=== PATIENT | female | born 1975 | race Caucasian/White ===

== ENCOUNTER 2017-10-19 22:38 | Emergency (ER) | payer BC ==
[~2017-10-19] VITALS: Ht 175.3 cm; Wt 102.1 kg
[~2017-10-19 22:38] MED LIST: CEPH500T PO; CITA40TA5 PO; CYCL10TA2 PO; DEXM10TA PO; GABA300C10 PO; HUM100VI6 SQ; HYDR-3105 PO; INSU100I13 SQ; INSU100V5 SQ; LEVO50TA6 PO; LISI10TA2 PO; MELO15TA24 PO; METH750T94 PO; PANT40TA5 PO; PHEN37.5 PO; SULF1TAB24 PO; TRAM50TA PO
[2017-10-20 00:09] VITALS: BP 136/72
[2017-10-20] MEDS ORDERED: ATIVAN PO STA (00:13)
--- NOTE | 2017-10-20 00:14 | NUR ---
US CALL IN TO [facility] FOR ULTRASOUND AT THIS TIME.
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
[2017-10-20] MEDS ORDERED: NORCO 5MG PO PRN (00:30)
[2017-10-20] MEDS ORDERED: NORCO 5MG PO ONE (00:34)
[2017-10-20] MEDS ORDERED: ATIVAN ONE (00:35)
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
[2017-10-20 01:23] VITALS: BP 136/72
== END 2017-10-20 01:15 | disposition home or self-care (01) ==
LOC: ER 22:38
DX: S86.911A Strain of unspecified muscle(s) and tendon(s) at lower leg level, right leg, initial encounter (principal); E07.9 Disorder of thyroid, unspecified; E11.9 Type 2 diabetes mellitus without complications; I10 Essential (primary) hypertension; Z79.4 Long term (current) use of insulin; Z90.49 Acquired absence of other specified parts of digestive tract; Z79.899 Other long term (current) drug therapy; Y93.01 Activity, walking, marching and hiking; Y93.89 Activity, other specified; Y92.098 Other place in other non-institutional residence as the place of occurrence of the external cause; Y99.8 Other external cause status
CPT/HCPCS: 99284; 93971

== ENCOUNTER 2019-11-06 21:00 | Emergency (ER) | payer BC, MEDICAID, OTHER ==
[~2019-11-06] VITALS: Ht 175.3 cm; Wt 111.1 kg
[~2019-11-06 21:00] MED LIST changes: -PANT40TA5 PO; +PANT40TA6 PO
[2019-11-06 21:16] VITALS: BP 150/85
[2019-11-06 21:23] VITALS: BP_SYST 150
[2019-11-06] MEDS ORDERED: PREDNISONE PO STA (21:24)
[2019-11-06] MEDS ORDERED: BENADRYL PO STA (21:24)
[2019-11-06] MEDS ORDERED: PEPCID PO STA (21:24)
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
[2019-11-06] MEDS ORDERED: PREDNISONE ONE (21:31)
[2019-11-06] MEDS ORDERED: PEPCID ONE (21:32)
[2019-11-06] MEDS ORDERED: BENADRYL PO ONE (21:32)
== END 2019-11-06 21:53 | disposition home or self-care (01) ==
LOC: ER 21:00
DX: T22.411A Corrosion of unspecified degree of right forearm, initial encounter (principal); T22.412A Corrosion of unspecified degree of left forearm, initial encounter; T21.41XA Corrosion of unspecified degree of chest wall, initial encounter; T20.46XA Corrosion of unspecified degree of forehead and cheek, initial encounter; E10.9 Type 1 diabetes mellitus without complications; Z90.89 Acquired absence of other organs; Z79.899 Other long term (current) drug therapy; X08.8XXA Exposure to other specified smoke, fire and flames, initial encounter; Y93.89 Activity, other specified; Y92.89 Other specified places as the place of occurrence of the external cause; Y99.8 Other external cause status
CPT/HCPCS: 99284; J7512; Q0163

== ENCOUNTER → 2019-11-18 | Outpatient (CLI) | payer OTHER ==
[~2019-11-18] MED LIST changes: +PANT40TA5 PO; -PANT40TA6 PO
--- NOTE | 2019-11-18 14:35 | DIREP ---
PROCEDURE:XRAY FOOT MIN 3 VWS-LT COMPARISON:[facility], CR, XRAY FOOT MIN 3 VWS-LT, 01/06/2017, 04:30 PM. INDICATIONS:L03.032 CELLULITIS OF LEFT TOE FINDINGS: BONES:No visible fracture. No bony destructive changes. JOINTS:Lisfranc alignment within normal limits. SOFT TISSUES:Soft tissue swelling with presumed bandage material about the great toe. OTHER:No additional findings. CONCLUSION: 1. Soft tissue swelling great toe consistent with cellulitis based on provided history. 2. No bony destructive changes to suggest advanced osteomyelitis. Early osteomyelitis can be radiographically occult, if concern for osteomyelitis persists consider MRI, preferably with contrast to further assess. Dictated by: Arben Coelho M.D. on 11/18/2019 at 02:31 PM
== END | disposition home or self-care (01) ==
LOC: RAD 14:07
PROVIDERS: ATTEND Nurse Practitioner Family
DX: L03.032 Cellulitis of left toe (principal); M25.475 Effusion, left foot
CPT/HCPCS: 73630-LT

== ENCOUNTER 2020-02-17 18:31 | Emergency (ER) | payer OTHER ==
[~2020-02-17] VITALS: Ht 175.3 cm; Wt 111.1 kg
[~2020-02-17 18:31] MED LIST changes: -PANT40TA5 PO; +PANT40TA6 PO
[2020-02-17 18:50] VITALS: BP 132/76
[2020-02-17 18:59] VITALS: BP 132/76
[2020-02-17] MEDS ORDERED: TYLENOL PO ONE (19:05)
[2020-02-17] MEDS ORDERED: TYLENOL PO STA (19:15)
--- NOTE | 2020-02-17 19:46 | DIREP ---
PROCEDURE:CHEST 2 VIEWS COMPARISON:[facility], CR, XRAY CHEST SINGLE VW, 11/18/2018, 01:42 AM. INDICATIONS:Cough FINDINGS: LUNGS/PLEURA:No significant pulmonary parenchymal abnormalities. No effusions. The lungs are well-expanded and clear. No ground-glass or interstitial infiltrates are seen to suggest viral pneumonia. No pneumonia, heart failure or effusions are seen. VASCULATURE:Normal. Unremarkable pulmonary vasculature. CARDIAC:Normal. No cardiac silhouette abnormality or cardiomegaly. MEDIASTINUM:Normal. No visible mass or adenopathy. BONES:Normal. No fracture or visible bony lesion. Minimal DJD in the thoracic spine. OTHER:Negative. CONCLUSION:No active disease. No pneumonia is seen. Dictated by: Davis Parikh MD on 02/17/2020 at 07:44 PM
--- NOTE | 2020-02-17 20:29 | ER.PDOC ---
General Chief Complaint: General Complaint Stated Complaint: FEVER/COUGH/CONGESTION Time seen by MD: 20:24 Source: patient Exam Limitations: no limitations History of Present Illness Initial Comments Fever, cough, congestion and bodyaches today. No chest pain or SOB. Timing/Duration: gradual Severity: moderate Associated Symptoms: fever/chills, sore throat, cough Allergies: Coded Allergies: No Known Allergies (Unverified , 08/16/14) Home Meds Active Scripts Sulfamethoxazole/Trimethoprim (BACTRIM DS TABLET) 1 Each Tablet, 1 TAB PO BID, #14 TAB 0 Refills Prov:JUNE GONSALES MD 03/05/17 Reported Medications Tramadol Hcl (TRAMADOL HCL) 50 Mg Tablet, 1 TAB PO Q4 for PAIN, #90 TAB 03/02/17 Phentermine Hcl (PHENTERMINE HCL) 37.5 Mg Tablet, 1 TAB PO DAILY, #30 TAB 2 Refills 03/02/17 Pantoprazole Sodium (PANTOPRAZOLE SODIUM) 40 Mg Tablet.dr, 1 TAB PO DAILY, #30 TAB 3 Refills 03/02/17 Methocarbamol (ROBAXIN-750) 750 Mg Tablet, 1 TAB PO Q6, #90 TAB 03/02/17 Meloxicam (MELOXICAM) 15 Mg Tablet, 1 TAB PO DAILY, #30 TAB 2 Refills 03/02/17 Lisinopril (LISINOPRIL) 10 Mg Tablet, 1 TAB PO DAILY, #30 TAB 5 Refills 03/02/17 Levothyroxine Sodium (LEVOTHYROXINE SODIUM) 50 Mcg Tablet, 1 TAB PO ACB, #30 TAB 5 Refills 03/02/17 Insulin Glargine,Hum.rec.anlog (LANTUS SOLOSTAR) 100 Unit/1 Ml Insuln.pen, 38 UNITS SQ BID, #15 MILLILITER 3 Refills 03/02/17 Hydrocodone Bit/Acetaminophen (NORCO 10-325) 1 Each Tablet, 1 EACH PO Q4H PRN for PAIN, #30 TAB 03/02/17 Gabapentin (GABAPENTIN) 300 Mg Capsule, 1 CAP PO BID, #90 CAP 5 Refills 03/02/17 Dexmethylphenidate Hcl (FOCALIN) 10 Mg Tablet, 1 TAB PO DAILY, #30 TAB 03/02/17 Cyclobenzaprine Hcl (FLEXERIL) 10 Mg Tablet, 1 TAB PO HS, #90 TAB 03/02/17 Citalopram Hydrobromide (CITALOPRAM HBR) 40 Mg Tablet, 1 TAB PO DAILY, #90 TAB 1 Refill 03/02/17 Insulin Regular, Human (HUMULIN R) 100 Unit/1 Ml Vial, 0 SQ ACHS, VIAL 01/21/16 Constitutional: no symptoms reported EENTM: see HPI Respiratory: see HPI Cardiovascular: no symptoms reported Gastrointestinal: diarrhea Genitourinary: no symptoms reported Musculoskeletal: no symptoms reported Skin: no symptoms reported All Other Systems: Reviewed and Negative Past Medical History Medical History: diabetes, high cholesterol, hypertension, thyroid disease Surgical History: back, cholecystectomy, tonsillectomy Social History Alcohol Use: none Drug Use: none Physical Exam General Appearance: alert, no distress Eye: eyes nml inspection Nose: nose nml Throat: pharynx nml, airway nml Neck: nml inspection, supple Respiratory: no resp.distress, breath sounds nml Abdomen: non-tender, no organomegaly CVS: reg rate & rhythm, heart sounds nml, tachycardia Skin: color nml, no rash, warm/dry Extremities: non-tender, nml ROM, no pedal edema NEURO/PSYCH: oriented x 3, CN's nml as tested, motor nml, sensation nml, mood/affect nml Results/Orders Results/Orders Orders - GODFREY COLLAZO MD Influenza A&B (02/17/20 19:01) Novel Coronavirus 2019([facility]) (02/17/20 19:01) Strep Screen (02/17/20 19:01) Acetaminophen (Tylenol) (02/17/20 19:05) Xr Chest 2v (02/17/20 19:09) Acetaminophen (Tylenol) (02/17/20 19:15) Vital Signs Date Time Temp Pulse Resp B/P (MAP) Pulse Ox O2 Delivery O2 Flow Rate FiO2 02/17/20 18:59 103.0 131 18 132/76 (94) 94 02/17/20 18:50 103.0 131 16 02/17/20 18:50 103.0 131 16 Administered Medications Medications (Trade) Dose Ordered Sig/Hakeem Route PRN Reason Start Time Stop Time Status Last Admin Dose Admin Acetaminophen (Tylenol) 1,000 mg STAT STAT PO 02/17/20 19:15 02/17/20 19:16 DC 10/20/20 19:15 1,000 MG Laboratory Tests Test 02/17/20 19:20 Influenza Type A Antigen NEGATIVE (NEG) Influenza B Immunofluorescence NEGATIVE (NEG) Group A Streptococcus Screen NEGATIVE (NEGATIVE) ER DEPART Departure Time of Disposition: 20:27 Disposition: 01 HOME, SELF-CARE Impression: Primary Impression: URI, acute Additional Impression: COVID-19 ruled out Condition: Stable Referrals: ENA PAZ (PCP) PRIMARY CARE PROVIDER Additional Instructions: Alternate Tylenol with Motrin Q4H as needed for fever of 100.4 and above Self quarantine at home until you are notified with your COVID results F/U with your PCP in 3-5 days Return to ED if worsening symptoms or concerns Duration or Time Spent with Pa: 20 min Problem Qualifiers GODFREY COLLAZO MD Feb 17, 2020 20:29
[2020-02-17 20:47] VITALS: BP 131/71
== END 2020-02-17 20:30 | disposition home or self-care (01) ==
LOC: ER 18:31
DX: J06.9 Acute upper respiratory infection, unspecified (principal); Z20.828 Contact with and (suspected) exposure to other viral communicable diseases; E07.9 Disorder of thyroid, unspecified; E11.9 Type 2 diabetes mellitus without complications; E78.00 Pure hypercholesterolemia, unspecified; I10 Essential (primary) hypertension; Z79.1 Long term (current) use of non-steroidal anti-inflammatories (NSAID); Z79.4 Long term (current) use of insulin; Z79.899 Other long term (current) drug therapy; Z90.49 Acquired absence of other specified parts of digestive tract
CPT/HCPCS: 71046; 87070; 87635; 87804; 87880; 99284

== ENCOUNTER 2020-08-03 17:30 | Emergency (ER) | payer OTHER ==
[~2020-08-03] VITALS: Ht 175.3 cm; Wt 106.6 kg
[~2020-08-03 17:30] MED LIST changes: -LISI10TA2 PO; +LISI10TA20 PO
[2020-08-03 17:40] VITALS: BP 140/63
[2020-08-03 17:43] VITALS: BP 140/63
[2020-08-03] MEDS ORDERED: TORADOL IM STA (17:43)
[2020-08-03] MEDS ORDERED: TORADOL ONE (17:44)
--- NOTE | 2020-08-03 17:49 | ER.PDOC ---
General Chief Complaint: Extremities Stated Complaint: LEFT FOOT INJURY Time seen by MD: 17:47 Source: patient Exam Limitations: no limitations History of Present Illness Initial Comments Left foot and ankle pain. Patient twisted it this evening. Pain is worse with movement. Onset: just prior to arrival Where: home Severity: moderate Context: twist Modifying Factors: pain on movement Allergies: Coded Allergies: No Known Allergies (Unverified , 08/16/14) Home Meds Active Scripts Sulfamethoxazole/Trimethoprim (BACTRIM DS TABLET) 1 Each Tablet, 1 TAB PO BID, #14 TAB 0 Refills Prov:JUNE GONSALES MD 03/05/17 Reported Medications Tramadol Hcl (TRAMADOL HCL) 50 Mg Tablet, 1 TAB PO Q4 for PAIN, #90 TAB 03/02/17 Phentermine Hcl (PHENTERMINE HCL) 37.5 Mg Tablet, 1 TAB PO DAILY, #30 TAB 2 Re fills 03/02/17 Pantoprazole Sodium (PANTOPRAZOLE SODIUM) 40 Mg Tablet.dr, 1 TAB PO DAILY, #30 TAB 3 Refills 03/02/17 Methocarbamol (ROBAXIN-750) 750 Mg Tablet, 1 TAB PO Q6, #90 TAB 03/02/17 Meloxicam (MELOXICAM) 15 Mg Tablet, 1 TAB PO DAILY, #30 TAB 2 Refills 03/02/17 Lisinopril (LISINOPRIL) 10 Mg Tablet, 1 TAB PO DAILY, #30 TAB 5 Refills 03/02/17 Levothyroxine Sodium (LEVOTHYROXINE SODIUM) 50 Mcg Tablet, 1 TAB PO ACB, #30 TAB 5 Refills 03/02/17 Insulin Glargine,Hum.rec.anlog (LANTUS SOLOSTAR) 100 Unit/1 Ml Insuln.pen, 38 UNITS SQ BID, #15 MILLILITER 3 Refills 03/02/17 Hydrocodone Bit/Acetaminophen (NORCO 10-325) 1 Each Tablet, 1 EACH PO Q4H PRN for PAIN, #30 TAB 03/02/17 Gabapentin (GABAPENTIN) 300 Mg Capsule, 1 CAP PO BID, #90 CAP 5 Refills 03/02/17 Dexmethylphenidate Hcl (FOCALIN) 10 Mg Tablet, 1 TAB PO DAILY, #30 TAB 03/02/17 Cyclobenzaprine Hcl (FLEXERIL) 10 Mg Tablet, 1 TAB PO HS, #90 TAB 03/02/17 Citalopram Hydrobromide (CITALOPRAM HBR) 40 Mg Tablet, 1 TAB PO DAILY, #90 TAB 1 Refill 03/02/17 Insulin Regular, Human (HUMULIN R) 100 Unit/1 Ml Vial, 0 SQ ACHS, VIAL 01/21/16 Past Medical History Medical History: diabetes, hypertension Surgical History: cholecystectomy Family History Significant Family History: no pertinent family hx Social History Alcohol Use: none Drug Use: none Review of Systems Constitutional: no symptoms reported EENTM: no symptoms reported Respiratory: no symptoms reported Cardiovascular: no symptoms reported Gastrointestinal: no symptoms reported Musculoskeletal: see HPI All Other Systems: Reviewed and Negative Physical Exam General Appearance: Alert, No Apparent Distress Foot: tenderness (lateral left foot), swelling, ecchymosis Ankle: tenderness (left foot) Gait: limited by pain Neuro: sensation nml, motor nml Vascular: no vascular compromise Tendons: tendon function nml Leg/Knee/Thigh: uninjured above ankle Skin: warm/dry Head/ENT: nml inspection, pharynx nml Neck/Back: nml inspection, non-tender Resp/CVS: no resp distress Abdomen: non-tender, no organomegaly Results/Orders Results/Orders Orders - GODFREY COLLAZO MD Xr Ankle 3v Lt (08/03/20 17:43) Xr Foot Lt (08/03/20 17:43) Ketorolac Tromethamine (Toradol) (08/03/20 17:43) Ketorolac Tromethamine (Toradol) (08/03/20 17:44) Vital Signs Date Time Temp Pulse Resp B/P (MAP) Pulse Ox O2 Delivery O2 Flow Rate FiO2 08/03/20 17:43 98.4 94 16 140/63 (88) 99 08/03/20 17:40 98.4 94 16 08/03/20 17:40 98.4 94 16 99 Administered Medications Medications (Trade) Dose Ordered Sig/Hakeem Route PRN Reason Start Time Stop Time Status Last Admin Dose Admin Ketorolac Tromethamine (Toradol) 60 mg STAT STAT IM 08/03/20 17:43 08/03/20 17:45 DC 08/03/20 17:51 60 MG Progress Progress X rays left foot: Nondisplaced fracture of the proximal 5th metatarsal. 2. Postsurgical changes as above. Reviewed results with patient. She is given crutches and a walking boot and will follow up with Dr. Bishop. ER DEPART Departure Time of Disposition: 19:18 Disposition: 01 HOME, SELF-CARE Impression: Primary Impression: Metatarsal fracture Condition: Stable Referrals: ENA PAZ (PCP) PRIMARY CARE PROVIDER Additional Instructions: Ice Continue Mobic Tylenol #3 F/U with Dr. Bishop in 1-2 days, call for appointment Return to ED if any concerns Duration or Time Spent with Pa: 10 min Problem Qualifiers Primary Impression: Metatarsal fracture Encounter type: initial encounter Metatarsal bone: fifth Fracture type: closed Fracture alignment: nondisplaced Laterality: left Qualified Codes: S92.355A - Nondisplaced fracture of fifth metatarsal bone, left foot, initial encounter for closed fracture GODFREY COLLAZO MD Aug 03, 2020 17:49
--- NOTE | 2020-08-03 18:20 | DIREP ---
PROCEDURE:XRAY FOOT MIN 3 VWS-LT COMPARISON:[facility], , XRAY FOOT MIN 3 VWS-LT, 11/18/2019, 02:15 PM. INDICATIONS:pain FINDINGS: BONES:Nondisplaced fracture of the proximal 5th metatarsal. Amputation of the great toe at the level of the distal aspect of the proximal phalanx is noted. Calcaneal plantar and Achilles enthesophytes. JOINTS:Normal. SOFT TISSUES:Mild lateral soft tissue swelling. OTHER:No additional findings. CONCLUSION:1. Nondisplaced fracture of the proximal 5th metatarsal. 2. Postsurgical changes as above. Dictated by: Selin Rios M.D. on 08/03/2020 at 06:18 PM
--- NOTE | 2020-08-03 18:20 | DIREP ---
PROCEDURE:XRAY ANKLE MIN 3VWS-LT COMPARISON:None. INDICATIONS:pain FINDINGS: BONES:Nondisplaced proximal 5th metatarsal fracture. Calcaneal Achilles and plantar enthesophytes. JOINTS:Normal. SOFT TISSUES:Normal. OTHER:No additional findings. CONCLUSION:Nondisplaced proximal 5th metatarsal fracture. Dictated by: Selin Rios M.D. on 08/03/2020 at 06:19 PM
--- NOTE | 2020-08-03 19:20 | NUR ---
CRUTCH TRAINING PATIENT ABLE TO FOLLOW INSTRUCTIONS, DEMONSTRATED SAFE, EFFECTIVE USE OF CRUTCHES.
== END 2020-08-03 19:28 | disposition home or self-care (01) ==
LOC: ER 17:30
DX: S92.355A Nondisplaced fracture of fifth metatarsal bone, left foot, initial encounter for closed fracture (principal); I10 Essential (primary) hypertension; E11.9 Type 2 diabetes mellitus without complications; Z79.1 Long term (current) use of non-steroidal anti-inflammatories (NSAID); Z79.4 Long term (current) use of insulin; Z79.899 Other long term (current) drug therapy; Z90.49 Acquired absence of other specified parts of digestive tract; X50.9XXA Other and unspecified overexertion or strenuous movements or postures, initial encounter; Y93.89 Activity, other specified; Y92.098 Other place in other non-institutional residence as the place of occurrence of the external cause; Y99.8 Other external cause status
CPT/HCPCS: 73610; 73630; 96372; 99284; J1885

== ENCOUNTER 2021-03-20 11:46 | Emergency (ER) | payer OTHER ==
[~2021-03-20] VITALS: Ht 175.3 cm; Wt 111.1 kg
[~2021-03-20 11:46] MED LIST changes: -CITA40TA5 PO; +CITA40TA6 PO; +CYCL10TA19 PO; -CYCL10TA2 PO; -PHEN37.5 PO; +PHEN37.59 PO
[2021-03-20 11:49] VITALS: BP 132/80
--- NOTE | 2021-03-20 12:16 | ER.PDOC ---
General Chief Complaint: Cough/Congestion Stated Complaint: COUGH/CONGESTION,ST,HEAD/BODYACHE TRAVEL OUT OF US: No Time seen by MD: 11:50 Source: patient Exam Limitations: no limitations History of Present Illness Initial Comments This 45-year-old white female comes in with complaint of possible Covid. Her son that is 10 years old tested positive for Covid yesterday. She started yesterday with some myalgias and then today woke up with a headache cough that i s nonproductive cough no change in sense of smell or taste. She does complain of some abdominal discomfort but she is not sure that she might not be passing a stone actually because her pain is on the right side and goes down into the from the flank down into the groin. She states that the abdominal pain that might be a stone just started today. She has a history of kidney stones in the past.She has subjective fever but has not taken a temp. Timing/Duration: 24 hours Severity: mild Modifying Factors: improves with other (nothing) Associated Symptoms: cough, fever/chills, headaches Allergies: Coded Allergies: No Known Allergies (Unverified , 08/16/14) Home Meds Active Scripts Sulfamethoxazole/Trimethoprim (BACTRIM DS TABLET) 1 Each Tablet, 1 TAB PO BID, #14 TAB 0 Refills Prov:JUNE GONSALES MD 03/05/17 Reported Medications Tramadol Hcl (TRAMADOL HCL) 50 Mg Tablet, 1 TAB PO Q4 for PAIN, #90 TAB 03/02/17 Phentermine Hcl (PHENTERMINE HCL) 37.5 Mg Tablet, 1 TAB PO DAILY, #30 TAB 2 Refills 03/02/17 Pantoprazole Sodium (PANTOPRAZOLE SODIUM) 40 Mg Tablet.dr, 1 TAB PO DAILY, #30 TAB 3 Refills 03/02/17 Methocarbamol (ROBAXIN-750) 750 Mg Tablet, 1 TAB PO Q6, #90 TAB 03/02/17 Meloxicam (MELOXICAM) 15 Mg Tablet, 1 TAB PO DAILY, #30 TAB 2 Refills 03/02/17 Lisinopril (LISINOPRIL) 10 Mg Tablet, 1 TAB PO DAILY, #30 TAB 5 Refills 03/02/17 Levothyroxine Sodium (LEVOTHYROXINE SODIUM) 50 Mcg Tablet, 1 TAB PO ACB, #30 TAB 5 Refills 03/02/17 Insulin Glargine,Hum.rec.anlog (LANTUS SOLOSTAR) 100 Unit/1 Ml Insuln.pen, 38 UNITS SQ BID, #15 MILLILITER 3 Refills 03/02/17 Hydrocodone Bit/Acetaminophen (NORCO 10-325) 1 Each Tablet, 1 EACH PO Q4H PRN for PAIN, #30 TAB 03/02/17 Gabapentin (GABAPENTIN) 300 Mg Capsule, 1 CAP PO BID, #90 CAP 5 Refills 03/02/17 Dexmethylphenidate Hcl (FOCALIN) 10 Mg Tablet, 1 TAB PO DAILY, #30 TAB 03/02/17 Cyclobenzaprine Hcl (FLEXERIL) 10 Mg Tablet, 1 TAB PO HS, #90 TAB 03/02/17 Citalopram Hydrobromide (CITALOPRAM HBR) 40 Mg Tablet, 1 TAB PO DAILY, #90 TAB 1 Refill 03/02/17 Insulin Regular, Human (HUMULIN R) 100 Unit/1 Ml Vial, 0 SQ ACHS, VIAL 01/21/16 Past Medical History Medical History: diabetes, hypertension, thyroid disease Surgical History: back, cholecystectomy, tubal Social History Smoking: non-smoker Alcohol Use: none Drug Use: none Review of Systems Constitutional: chills, fever, malaise Gastrointestinal: abdominal pain, nausea All Other Systems: Reviewed and Negative Physical Exam General Appearance: No Apparent Distress, Obese EENT: eyes nml inspection, nml ENT inspection, pharynx nml Neck: Non-Tender, Full Range of Motion, Supple Respiratory: chest non-tender, lungs clear, normal breath sounds, no respirato ry distress, no accessory muscle use CVS: reg rate & rhythm, no murmur, no gallop Gastrointestinal: Hypoactive bowel sounds, Tenderness (Patient has some vague epigastric pain. She states that is been there though since her lap band has been done. Really has not changed from baseline. She does have some vague pain in the right flank and radiated into the groin that she thinks is a stone. On palpation it does not make that pain any better or worse.) Back: Normal Inspection, No CVA Tenderness Extremities: Normal Range of Motion, Non-Tender, Normal Inspection Neurologic/Psychiatric: applications analyst II-XII NML as Tested, Alert, Normal Mood/Affect, Oriented x 3 (Patient does have diabetic neuropathy in both of her feet. Motor however is intact) Skin: Normal Color, Warm/Dry Lymphatic: No Adenopathy Results/Orders Results/Orders Orders - ABBIE SARMIENTO MD Cbc With Auto Diff (03/20/21 12:08) Comprehensive Metabolic Panel (03/20/21 12:08) Urinalysis (03/20/21 12:08) Xr Chest 1v (03/20/21 12:08) Covid19 Antigen Idania Barbie (03/20/21 12:16) Urine Culture (03/20/21 12:10) Vital Signs Date Time Temp Pulse Resp B/P (MAP) Pulse Ox O2 Delivery O2 Flow Rate FiO2 03/20/21 11:49 98.3 77 18 132/80 (97) 97 Room Air 03/20/21 11:49 98.3 77 18 97 03/20/21 11:49 98.3 77 18 Laboratory Tests Test 03/20/21 11:49 03/20/21 12:10 03/20/21 12:20 SARS-CoV-2 Antigen (Rapid) NEGATIVE (NEGATIVE) Urine Collection Type RANDOM Urine Color YELLOW Urine Appearance CLEAR Urine Bilirubin NEGATIVE (NEGATIVE) Urine Ketones NEGATIVE (NEGATIVE) Urine Specific [place] 1.010 (1.005-1.030) Urine pH 6.0 (4.5-8.0) Urine Protein NEGATIVE (NEGATIVE) Urine Urobilinogen 0.2 E.U./dL (0.2) Urine Nitrate NEGATIVE (NEGATIVE) Urine Leukocyte Esterase TRACE (NEGATIVE) H Urine Glucose (Auto)(UA) NEGATIVE (NEGATIVE) Urine Blood NEGATIVE (NEGATIVE) Urine WBC 2-5 WBC/HPF (0-2) Urine Squamous Epithelial Cells FEW (<=FEW) Urine Bacteria FEW (NONE SEEN) H White Blood Count 7.9 10^3/uL (4.5-11.0) Red Blood Count 5.01 10^6/uL (4.00-5.20) Hemoglobin 12.3 g/dL (12.0-15.0) Hematocrit 40.4 % (36.0-46.0) Mean Corpuscular Volume 80.6 fL (78-100) Mean Corpuscular Hemoglobin 24.6 pg (26-34) L Mean Corpuscular Hemoglobin Concent 30.4 g/dL (33-36.5) L Red Cell Distribution Width 13.7 % (11.5-14.5) Platelet Count 242 10^3/uL (150-400) Mean Platelet Volume 11.1 fL (7.8-11.0) H Neutrophils (%) (Auto) 63.3 % (41.0-85.0) Lymphocytes (%) (Auto) 29.8 % (24.0-44.0) Monocytes (%) (Auto) 5.7 % (5.0-12.0) Neutrophils # (Auto) 5.0 10^3/uL (1.8-7.7) Lymphocytes # (Auto) 2.34 10^3/uL1 (1.0-4.8) Monocytes # (Auto) 0.5 10^3/uL (0.3-0.8) Absolute Immature Granulocyte (auto 0.01 10^3 u/L (0-2) Absolute Eosinophils (auto) 0.1 10^3/uL (0.0-0.2) Immature Granulocytes % 0.10 % (0.00-0.50) Eosinophils % 0.8 % (0.0-5.0) Basophils % 0.3 % (0.0-0.2) H Basophils # 0.0 10^3/uL (0.0-0.1) Sodium Level 138 mmol/L (132-145) Potassium Level 3.8 mmol/L (3.6-5.2) Chloride Level 103.0 mmol/L (96-109) Carbon Dioxide Level 27.6 mmol/L (20.0-32) Anion Gap 11.2 Blood Urea Nitrogen 13 mg/dL (7-18) Creatinine 0.87 mg/dL (0.59-1.40) Estimated GFR () 85.6 (>/=60) Est GFR (CKD-EPI)(Non-Afr [place]an) 70.7 (>/=60) BUN/Creatinine Ratio 14.0 Glucose Level 215 mg/dL (70-110) H Calcium Level 8.7 mg/dL (8.4-10.5) Total Bilirubin 0.5 mg/dL (0.2-1.0) Aspartate Amino Transferase (AST) 53 U/L (0-35) H Alanine Aminotransferase (ALT) 65 U/L (12-78) Alkaline Phosphatase 70 U/L (50-136) Total Protein 7.1 g/dL (6.4-8.2) Albumin 3.3 g/dL (3.4-5.0) L Globulin 3.8 Albumin/Globulin Ratio 0.868 Progress Progress Diagnostic studies: Metabolic panelGlucose elevated at 215AST slightly elevated at 53 albumin low at 3.3 the rest of the metabolic panel is normal chest x-ray normal urinalysis normal CBC normal CBC normalCovid negative This patient has a 10-year-old son that turned up positive for Covid last night. I suspect she has Covid from her symptoms but it may just be too early to actually get it on the test. I recommend that she follow-up with her PCP tomorrow or Sunday at the latest and get retested. Patient is in the higher risk group because she is diabetic and her BMI is greater than 30. ER DEPART Departure Time of Disposition: 13:03 Disposition: 01 HOME / SELF CARE / HOMELESS Impression: Primary Impression: Viral syndrome Condition: Stable Referrals: AURA SANTAMARIA APRN (PCP) PRIMARY CARE PROVIDER Duration or Time Spent with Pa: 15m Return to Work/School Can a patient return to school: No (This patient needs to quarantine because her 10-year-old son has Covid.) ABBIE SARMIENTO MD Mar 20, 2021 12:16
[2021-03-20 12:21] LABS: BILIRUBIN,URINE NEGATIVE (NEGATIVE); UROBILINOGEN,URINE 0.2 E.U./dL (0.2)
[2021-03-20 12:26] LABS: BASOPHIL % 0.3 % (0.0-0.2); EOSINOPHIL # 0.1 10^3/uL (0.0-0.2); EOSINOPHIL % 0.8 % (0.0-5.0); LYMPHOCYTES # 2.34 10^3/uL1 (1.0-4.8); LYMPHOCYTES % 29.8 % (24.0-44.0); MEAN CORP HGB 24.6 pg (26-34); MONOCYTES # 0.5 10^3/uL (0.3-0.8); MONOCYTES % 5.7 % (5.0-12.0); NEUTROPHILS % 63.3 % (41.0-85.0); PLATELET COUNT 242 10^3/uL (150-400); RED CELL DISTRIBUTION WIDTH 13.7 % (11.5-14.5)
[2021-03-20 12:44] LABS: CALCIUM 8.7 mg/dL (8.4-10.5); CARBON DIOXIDE 27.6 mmol/L (20.0-32)
--- NOTE | 2021-03-20 12:48 | DIREP ---
PROCEDURE:CHEST 1 VIEW COMPARISON:[facility], ABHINAV, XRAY CHEST 2 VWS, 02/17/2020, 07:19 PM. [facility], ABHINAV, XRAY CHEST SINGLE VW, 11/18/2018, 01:42 AM. INDICATIONS:pneumonia FINDINGS: LUNGS/PLEURA:No confluent pulmonary infiltrate. No effusions. No pneumothorax. VASCULATURE:Unremarkable pulmonary vasculature. CARDIAC:No cardiac silhouette abnormality or cardiomegaly. MEDIASTINUM:No visible mass or adenopathy. BONES:No fracture or visible bony lesion. OTHER:Negative. CONCLUSION: 1. Unremarkable chest radiographs. Dictated by: Zoila Montoya MD on 03/20/2021 at 12:46 PM
== END 2021-03-20 13:10 | disposition home or self-care (01) ==
LOC: ER 11:46
DX: B34.9 Viral infection, unspecified (principal); E11.9 Type 2 diabetes mellitus without complications; I10 Essential (primary) hypertension; Z20.822 Contact with and (suspected) exposure to COVID-19; Z79.1 Long term (current) use of non-steroidal anti-inflammatories (NSAID); Z79.4 Long term (current) use of insulin; Z79.899 Other long term (current) drug therapy; Z87.442 Personal history of urinary calculi; Z90.49 Acquired absence of other specified parts of digestive tract
CPT/HCPCS: 36415; 71045; 80053; 81001; 85025; 87086; 87426; 99284

== ENCOUNTER 2021-11-03 07:53 | Day surgery (SDC) | payer OTHER ==
--- NOTE | 2021-11-02 15:02 | PCM.EKG ---
[facility] Test Date: 2021-11-02 Test Time: 14:55:20 Pat Name: EYAL SOOD Department: Room: Gender: F Pharmacy Care Coordinator: SATURNINO : 1975 Requested By: MARI ROJAS Order Number: [id number] Reading MD: Measurements Intervals [place] Rate: 81 P: 43 NH: 123 QRS: 33 QRSD: 88 T: 65 QT: 408 QTc: 474 Interpretive Statements Sinus rhythm No previous ECG available for comparison Please click the below link to view image of tracing.
[2021-11-02 15:50] LABS: CARBON DIOXIDE 27.2 mmol/L (20.0-32)
[~2021-11-03] VITALS: Ht 175.3 cm; Wt 108.9 kg
[2021-11-03] VITALS (12 sets, daily range): BP systolic 101–146; BP diastolic 48–85
[~2021-11-03 07:53] MED LIST changes: +ANCEF ONE; +INSU100V13 SQ; +NS 1000ML 1,000 ML ONE; +NS 100ML 100 ML IV ONE
[2021-11-03] MEDS ORDERED: NS 1000ML 1,000 ML IV SCH (08:00)
[2021-11-03] MEDS ORDERED: ANCEF 3 GM in NS 100ML 100 ML IV ONE (08:00)
[2021-11-03] MEDS ORDERED: LACTATED RINGERS 1,000 ML IV SCH ×2 (08:00→11:20)
[2021-11-03] MEDS ORDERED: DULO20CA PO (08:19)
[2021-11-03] MEDS ORDERED: XYLOCAINE 2%-EPI 1:100,000 ONE ×2 (09:52→10:57)
[2021-11-03] MEDS ORDERED: SODIUM CHLORIDE IRR BOTTLE IR ONE (09:52)
[2021-11-03] MEDS ORDERED: TORADOL ONE (09:54)
[2021-11-03] MEDS ORDERED: DECADRON ONE (09:54)
[2021-11-03] MEDS ORDERED: OFIRMEV 100 ML IV ONE (09:54)
[2021-11-03] MEDS ORDERED: ZOFRAN ONE (09:54)
[2021-11-03] MEDS ORDERED: XYLOCAINE ONE (09:54)
[2021-11-03] MEDS ORDERED: SUBLIMAZE ONE (09:55)
[2021-11-03] MEDS ORDERED: DIPRIVAN IV ONE (09:55)
[2021-11-03] MEDS ORDERED: VERSED ONE (10:02)
[2021-11-03] MEDS ORDERED: NS 1000ML 1,000 ML ONE (11:22)
[2021-11-03] MEDS ORDERED: LACTATED RINGERS 1,000 ML ONE (11:23)
--- NOTE | 2021-11-03 11:54 | OPH ---
DATE OF SURGERY: 11/03/2021 DICTATOR NAME: Kelvin Bishop MD PREOPERATIVE DIAGNOSES: 1. Right foot plantar fasciitis. 2. Peroneus brevis tendon tear of the right foot. POSTOPERATIVE DIAGNOSES: 1. Right plantar fasciitis. 2. Inflammatory synovitis of the right peroneal tendons. OPERATIVE PROCEDURES: 1. Partial plantar fascia release of the right foot. 2. Through a separate incision, is a right peroneal tendon debridement. SURGEON: Kelvin iBshop MD ANESTHESIA: LMA. TOURNIQUET TIME: 53 minutes at 200 mmHg. DRAINS: None. BLOOD LOSS: 20 mL total. DESCRIPTION OF INDICATIONS: The patient is a 46-year-old female who has had pain about the medial and lateral aspects of her right foot for the last 6 months. The patient states that several months ago, she fell and suffered an inversion injury to the right foot and ankle and has had pain laterally about the ankle as well as swelling since then. She also complains a long history of pain about the insertion of her plantar fascia and pain with weightbearing. The patient has a preexisting footdrop from back surgery approximately 2 years ago. The patient has had conservative treatment consisting of cast boot as well as limited weightbearing for several months without any improvement. The MRI scan shows that she has a split tear of the peroneus brevis tendon as well as a partial plantar fascial tear. Clinically, the patient had tenderness about the plantar fascial insertion. She was able to actively dorsiflex the ankle to about -5 degrees of neutral. She had swelling and tenderness along the course of her peroneal tendons, posterior and inferior to the lateral malleolus. There was no subluxation of the peroneal tendons. Because of continued pain and failure of conservative treatment, the patient was taken to the operating room for the above procedures. DESCRIPTION OF PROCEDURE: The patient was placed in the operating table in the supine position. LMA anesthetic was induced without difficulty. A well-padded tourniquet was placed about the right calf. The right lower extremity was then sterilely prepped and draped. The patient had the leg exsanguinated and the tourniquet was inflated to 300. The patient had an incision made along the posterior edge of the lateral malleolus. The incision was taken through the skin and the subcutaneous tissue and distal to the tip of the lateral malleolus approximately 4 cm. Incision was taken through the skin and subcutaneous tissues. She had a large subcutaneous vein that was tied off. The peroneal tendon sheath was opened from posterior to the lateral malleolus down to almost the peroneus brevis insertion into the base of the fifth metatarsal. The peroneus brevis tendon as well as the peroneus longus tendon were explored and were found to have some inflammatory synovitis that was debrided. There were no tears located in either tendon. The wounds were irrigated. After the tendon synovitis was debrided, then the retinaculum was closed with a 2-0 Monocryl in an interrupted [id number] manner both proximally and distally. The skin was closed with a 3-0 Ethilon in a horizontal mattress method. The skin edges had been injected with Marcaine with epinephrine. We turned our attention to the medial side. The patient had incision made on the medial border of the hindfoot in line with the posterior edge of her medial malleolus. The incision was taken through the skin and the subcutaneous tissue. The abductor tendon sheath was identified and released. The plantar fascia was identified and a retractor was placed beneath the plantar fascia. With a 15 blade, we released approximately 75% of the plantar fascia on about 1 cm distal to its insertion into the calcaneus. The wounds were then irrigated. The skin was closed with a 2-0 Ethilon in a vertical mattress method. Again, the skin edges were injected with Marcaine with epinephrine. The patient had a compressive dressing consisting of Adaptic, 4 x 4's, ABD pads, cast padding and U-splint applied. Tourniquet was released and the patient was extubated in the operating room and sent to recovery in stable condition. Kelvin Bishop MD DR: NISA/TRACY TOBAR: [id number] RECEIPT: [id number]
[2021-11-03] MEDS ORDERED: TYLENOL PO ONE (13:00)
[2021-11-03] MEDS ORDERED: TYLENOL ONE (13:01)
[2021-11-03] MEDS ORDERED: ACET1TAB57 PO (13:04)
== END 2021-11-03 13:20 | disposition home or self-care (01) ==
LOC: SDC 07:53
PROVIDERS: ATTEND Orthopaedic Surgery
DX: S86.311A Strain of muscle(s) and tendon(s) of peroneal muscle group at lower leg level, right leg, initial encounter (principal); M72.2 Plantar fascial fibromatosis; I10 Essential (primary) hypertension; I25.10 Atherosclerotic heart disease of native coronary artery without angina pectoris; K21.9 Gastro-esophageal reflux disease without esophagitis; F32.A Depression, unspecified; E03.9 Hypothyroidism, unspecified; E10.9 Type 1 diabetes mellitus without complications; Z80.7 Family history of other malignant neoplasms of lymphoid, hematopoietic and related tissues; W19.XXXA Unspecified fall, initial encounter; Z98.890 Other specified postprocedural states; Z90.49 Acquired absence of other specified parts of digestive tract; Z90.89 Acquired absence of other organs; Y93.89 Activity, other specified; Y92.89 Other specified places as the place of occurrence of the external cause
CPT/HCPCS: 27675; 28008; 36415 ×2; 80048; 82948; 84703; 93005; A4217; J0131; J0690 ×2; J1100; J1885; J2001; J2250; J2405; J3010; J3490 ×2; J7030 ×2; J7120 ×3